=== PATIENT | female | born 1980 | race Caucasian/White ===

== ENCOUNTER 2018-04-28 18:44 | Observation (INO) | payer OTHER ==
[~2018-04-28] VITALS: Ht 172.7 cm; Wt 69.4 kg
[2018-04-28 19:52] VITALS: BP 110/58
[2018-04-28] MEDS ORDERED: PREN1TAB80 PO (20:19)
== END 2018-04-28 22:45 | disposition home or self-care (01) ==
LOC: 4S 18:44
PROVIDERS: ADMIT Obstetrics & Gynecology; ATTEND Obstetrics & Gynecology
DX: O62.9 Abnormality of forces of labor, unspecified (principal); O42.92 Full-term premature rupture of membranes, unspecified as to length of time between rupture and onset of labor; Z3A.38 38 weeks gestation of pregnancy
CPT/HCPCS: 36415; 76811; 81002; 89060; G0378

== ENCOUNTER 2018-05-07 14:05 | Inpatient (IN) | payer OTHER ==
[~2018-05-07] VITALS: Ht 172.7 cm; Wt 69.4 kg
[~2018-05-07 14:05] MED LIST: PREN1TAB80 PO
[2018-05-07] MEDS ORDERED: OXYTOCIN 30 UNITS/LACT RINGERS 500 ML IV ONE (14:09)
[2018-05-07] MEDS ORDERED: RINGERS SOLUTION,LACTATED 1,000 ML IV PRN (14:09)
[2018-05-07] MEDS ORDERED: FentaNYL CITRATE-PF 100 MCG/2 ML VIAL IVP PRN (14:15)
[2018-05-07] MEDS ORDERED: METOCLOPRAMIDE HCL 5 MG/ML 2 ML VIAL IVP PRN (14:15)
[2018-05-07] MEDS ORDERED: CITRIC ACID/SODIUM CITRATE 30 ML SOLUTION UDCUP PO PRN (14:15)
[2018-05-07 14:48] LABS: BASOPHILS % (AUTO) 0.3 % (0.0-2.0); EOSINOPHILS % (AUTO) 0.2 % (1.0-6.0); HEMATOCRIT 34.3 % (36-46); HEMOGLOBIN 11.3 g/dL (12.0-16.0); LYMPHOCYTES # (AUTO) 1.7 K/uL (1.0-4.8); LYMPHOCYTES % (AUTO) 18.6 % (22.0-44.0); MEAN CORPUSCULAR HEMOGLOBIN 30.6 pg (26.0-34.0); MEAN CORPUSCULAR HGB CONC 32.8 G/dL (31.0-37.0); MEAN CORPUSCULAR VOLUME 93 fL (80-100); MONOCYTES # (AUTO) 0.4 K/uL (0.1-1.0); MONOCYTES % (AUTO) 4.2 % (2.0-9.0); NEUTROPHILS # (AUTO) 7.1 K/uL (1.8-7.7); NEUTROPHILS % (AUTO) 76.7 % (40.0-70.0); PLATELET COUNT (AUTO)-OB 167 K/uL (150-450); RED BLOOD CELL COUNT(AUTO) 3.68 MIL/uL (4.00-5.20)
[2018-05-07 14:56] VITALS: BP 105/62
[2018-05-07] MEDS: RINGERS SOLUTION,LACTATED 1,000 ML IV SCH ×2 (17:08→21:20)
[2018-05-07] MEDS ORDERED: OXYTOCIN 30 UNITS/LACT RINGERS 500 ML IV PRN (17:41)
[2018-05-07] MEDS ORDERED: OXYGEN THERAPY IH SCH (20:00)
[2018-05-07] MEDS ORDERED: ROPIVACAINE HCL/PF 0.2% 100 ML ED ONE (20:18)
[2018-05-07] MEDS ORDERED: LIDOCAINE/PF 2% 5 ML VIAL ONE (20:18)
[2018-05-07] MEDS ORDERED: NALBUPHINE HCL 10 MG/ML VIAL IVP PRN (20:45)
[2018-05-07] MEDS ORDERED: ROPIVACAINE HCL/PF 0.2% 100 ML ED PRN (20:45)
[2018-05-07] MEDS ORDERED: DiphenhydrAMINE HCL 50 MG/ML VIAL IVP PRN (20:45)
[2018-05-07] MEDS ORDERED: ONDANSETRON HCL 4 MG/2 ML VIAL IVP PRN (20:45)
[2018-05-08] MEDS ORDERED: ACETAMINOPHEN/CODEINE 300-30 MG TABLET PO PRN ×2 (00:15)
[2018-05-08] MEDS ORDERED: LANOLIN 7 GM OINTMENT TP PRN (00:15)
[2018-05-08] MEDS ORDERED: GLYCERIN/WITCH HAZEL LEAF 40 PADS JAR TP PRN (00:15)
[2018-05-08] MEDS ORDERED: BENZOCAINE 20%/MENTHOL 56 GM SPRAY CANISTER TP PRN (00:15)
[2018-05-08] MEDS: IBUPROFEN 800 MG TABLET PO SCH ×3 (08:04→23:57)
[2018-05-08] MEDS: MAGNESIUM HYDROXIDE SUSPENSION 30 ML UDCUP PO SCH ×2 (09:10→21:08)
[2018-05-09] MEDS: IBUPROFEN 800 MG TABLET PO SCH (05:29)
[2018-05-09] MEDS ORDERED: DSS100 PO (07:42)
[2018-05-09] MEDS ORDERED: FERR-89 PO (07:42)
[2018-05-09] MEDS ORDERED: IBUP-2071 PO (07:42)
== END 2018-05-09 09:45 | disposition home or self-care (01) | DRG 807 ==
LOC: OBSVTOIN 14:05 → 4S 14:05
PROVIDERS: ADMIT Obstetrics & Gynecology; ATTEND Obstetrics & Gynecology
PROC: 10E0XZZ Delivery of Products of Conception, External Approach (ICD-10-PCS; principal; 2018-05-07)
PROC: 0KQM0ZZ Repair Perineum Muscle, Open Approach (ICD-10-PCS; 2018-05-07)
PROC: 3E0R3BZ Introduction of Anesthetic Agent into Spinal Canal, Percutaneous Approach (ICD-10-PCS; 2018-05-07)
PROC: 00HU33Z Insertion of Infusion Device into Spinal Canal, Percutaneous Approach (ICD-10-PCS; 2018-05-07)
DX: O32.8XX0 Maternal care for other malpresentation of fetus, not applicable or unspecified (principal); Z37.0 Single live birth; O69.1XX0 Labor and delivery complicated by cord around neck, with compression, not applicable or unspecified; O70.1 Second degree perineal laceration during delivery; Z3A.40 40 weeks gestation of pregnancy
CPT/HCPCS: 86850; 86900; 86901; J2590; J2795; J3490; J7120